=== PATIENT | female | born 1970 | race Caucasian/White ===

== ENCOUNTER 2017-08-01 09:00 | Emergency (ER) | payer SELFPAY ==
[2017-08-01 09:02] VITALS: BP 109/77; PULSE 106; RESP 28; TEMP 37.4; O2SAT 98; BMI 47.0
--- NOTE | 2017-08-01 09:15 | XR_ITS ---
XR chest portable HISTORY: Shortness of air ITS.REASON: soa/anxiety ORDERING PHYSICIAN: Isma Daugherty MD PATIENT AGE: 47 years COMPARISON: None available FINDINGS: The cardiomediastinal silhouette and pulmonary vascularity are within normal limits. The lungs are clear without infiltrates, suspicious nodules, or pleural effusions. No acute bony abnormalities. IMPRESSION: Negative chest, no acute finding
--- NOTE | 2017-08-01 09:16 | [facility].EDANX ---
ED Disposition Clinical Impression: Panic attack, Acute anxiety, Hypertension, Hx of prior ablation treatment, Obesity, Hyperventilation syndrome Disposition: Home, Self-Care Condition on Discharge: Fair Instructions: Anxiety and Panic Attacks (Alternative Therapy) Additional Instructions: 1- please obtain your ativan rx that is waiting for you from [facility]. use the visraril as needed. 2- you will need counseling with comp care. 3- use a paper bag if it helps. 4- return if needed. - Critical Care Critical Care Time: No Attestation: On , the high probability of a clinically significant, sudden or life threatening deterioration of the following system(s) required my full and direct attention, intervention and personal management. The time I documented below is in addition to time spent performing reported procedures but includes the following listed in this critical care notation. Medical Decision Making - Robert Inquiry Pt receiving controlled substance: No Robert was queried for this patient: No Vital Signs: 08/01/17 09:02 Temperature 99.4 F Temperature Source Oral Pulse Rate [Left Radial] 106 H Respiratory Rate 28 H Blood Pressure [Right Arm] 109/77 Blood Pressure Mean [Right Arm] 87 Blood Pressure Source [Right Arm] Automatic Cuff Blood Pressure Position [Right Arm] Sitting 02 Sat by Pulse Oximetry 98 Oxygen Delivery Method Room Air - Lab Data Lab Results 08/01/17 09:14: Specimen Source Right brachial, O2 % room air, ABG pH 7.46 H, ABG pCO2 33.7 L, ABG pO2 107.5 H, ABG HCO3 23.5, ABG Total CO2 24.6, ABG O2 Saturation 98, ABG Base Excess -0.3, Luis Test Non applicable 08/01/17 09:20: WBC 6.1, RBC 5.12, Hgb 13.8, Hct 43.2, MCV 84.3, MCH 27.0, MCHC 32.0, RDW 15.9, Plt Count 413, MPV 7.1 L, Neut % (Auto) 49.5, Lymph % (Auto) 38.4, [place] % (Auto) 6.2, Eos % (Auto) 5.2, Baso % (Auto) 0.6, Neut # (Auto) 3.0, Lymph # (Auto) 2.4, [place] # (Auto) 0.4, Eos # (Auto) 0.3, Baso # (Auto) 0.0 08/01/17 09:20: Sodium 138, Potassium 4.1, Chloride 101, Carbon Dioxide 26, Anion Gap 15.1 H, BUN 12, Creatinine 1.03 H, Estimated Creat Clear 66, Estimated GFR 57 L, Est GFR ( Amer) 69, Glucose 112 H, Calcium 8.6, Total Bilirubin 0.2, AST 18, ALT 24, Alkaline Phosphatase 76, Troponin I < 0.02, Total Protein 7.5, Albumin 3.5, Globulin 4.0 H, Albumin/Globulin Ratio 0.9 L 08/01/17 09:20: B-Natriuretic Peptide 25 Result diagrams: 08/01/17 09:20 08/01/17 09:20 Orders (Tests/Meds): ED MEDICATIONS Discontinued Medications Generic Name Dose Route Start Last Admin Trade Name Freq PRN Reason Stop Dose Admin Lorazepam 1 mg 08/01/17 09:14 08/01/17 09:17 Ativan 2mg/Ml Vial IV 08/01/17 09:15 1 mg ONCE ONE Administration ORDERS Category Date Time Status UDS [Drug Screen,Urine] Stat Lab 08/01/17 10:25 Received - Radiology Data #1 Image(s): Chest Preliminary Findings: Normal/NAD No acute findings and a portable chest x-ray. - ECG Data Tracing #1 Normal sinus rhythm 68/min baseline artifact no acute finding, ECG initial impression date: 08/01/17 ECG initial impression time: 09:39 Medical Decision Narrative: The patient underwent IV axis and received a dose of Ativan 1 mg IV with immediate resolution of her symptoms of anxiety dyspnea and palpitations. She quit crying and started being apologetic about her behavior. She verbalized concern about her father returning home. The patient received a second dose of Ativan during her ED stay and I had a full discussion with her about Ativan dependence. I strongly advised her for comprehensive counseling, outpatient psych evaluation for medication adjust, she verbalized understanding. Her boyfriend was in the bedside. Anxiety HPI - General Chief Complaint: Anxiety Stated Complaint: anxiety attack Time Seen by Provider: 08/01/17 09:35 Mode of Arrival: Wheelchair Limitations: No Limitations Description of Symptoms (
--- NOTE | 2017-08-01 09:21 | ED_ITS ---
ED Disposition Clinical Impression: Panic attack, Acute anxiety, Hypertension, Hx of prior ablation treatment, Obesity, Hyperventilation syndrome Disposition: Home, Self-Care Condition on Discharge: Fair Instructions: Anxiety and Panic Attacks (Alternative Therapy) Additional Instructions: 1- please obtain your ativan rx that is waiting for you from [facility]. use the visraril as needed. 2- you will need counseling with comp care. 3- use a paper bag if it helps. 4- return if needed. - Critical Care Critical Care Time: No Attestation: On , the high probability of a clinically significant, sudden or life threatening deterioration of the following system(s) required my full and direct attention, intervention and personal management. The time I documented below is in addition to time spent performing reported procedures but includes the following listed in this critical care notation. Medical Decision Making - Robert Inquiry Pt receiving controlled substance: No Robert was queried for this patient: No Vital Signs: 08/01/17 09:02 Temperature 99.4 F Temperature Source Oral Pulse Rate [Left Radial] 106 H Respiratory Rate 28 H Blood Pressure [Right Arm] 109/77 Blood Pressure Mean [Right Arm] 87 Blood Pressure Source [Right Arm] Automatic Cuff Blood Pressure Position [Right Arm] Sitting 02 Sat by Pulse Oximetry 98 Oxygen Delivery Method Room Air - Lab Data Lab Results 08/01/17 09:14: Specimen Source Right brachial, O2 % room air, ABG pH 7.46 H, ABG pCO2 33.7 L, ABG pO2 107.5 H, ABG HCO3 23.5, ABG Total CO2 24.6, ABG O2 Saturation 98, ABG Base Excess -0.3, Luis Test Non applicable 08/01/17 09:20: WBC 6.1, RBC 5.12, Hgb 13.8, Hct 43.2, MCV 84.3, MCH 27.0, MCHC 32.0, RDW 15.9, Plt Count 413, MPV 7.1 L, Neut % (Auto) 49.5, Lymph % (Auto) 38.4, [place] % (Auto) 6.2, Eos % (Auto) 5.2, Baso % (Auto) 0.6, Neut # (Auto) 3.0 , Lymph # (Auto) 2.4, [place] # (Auto) 0.4, Eos # (Auto) 0.3, Baso # (Auto) 0.0 08/01/17 09:20: Sodium 138, Potassium 4.1, Chloride 101, Carbon Dioxide 26, Anion Gap 15.1 H, BUN 12, Creatinine 1.03 H, Estimated Creat Clear 66, Estimated GFR 57 L, Est GFR ( Amer) 69, Glucose 112 H, Calcium 8.6, Total Bilirubin 0.2, AST 18, ALT 24, Alkaline Phosphatase 76, Troponin I < 0.02 , Total Protein 7.5, Albumin 3.5, Globulin 4.0 H, Albumin/Globulin Ratio 0.9 L 08/01/17 09:20: B-Natriuretic Peptide 25 Result diagrams: 08/01/17 09:20 08/01/17 09:20 Orders (Tests/Meds): ED MEDICATIONS Discontinued Medications Generic Name Dose Route Start Last Admin Trade Name Freq PRN Reason Stop Dose Admin Lorazepam 1 mg 08/01/17 09:14 08/01/17 09:17 Ativan 2mg/Ml Vial IV 08/01/17 09:15 1 mg ONCE ONE Administration ORDERS Category Date Time Status UDS [Drug Screen,Urine] Stat Lab 08/01/17 10:25 Received - Radiology Data #1 Image(s): Chest Preliminary Findings: Normal/NAD No acute findings and a portable chest x-ray. - ECG Data Tracing #1 Normal sinus rhythm 68/min baseline artifact no acute finding, ECG initial impression date: 08/01/17 ECG initial impression time: 09:39 Medical Decision Narrative: The patient underwent IV axis and received a dose of Ativan 1 mg IV with immediate resolution of her symptoms of anxiety dyspnea and palpitations. She quit
[2017-08-01 09:38] LABS: Basophils % 0.6 % (0.1-2.0); Eosinophils # 0.3 K/mm3 (0.0-0.4); Eosinophils % 5.2 % (0.1-12.0); Hematocrit 43.2 % (37.0-47.0); Hemoglobin 13.8 g/dL (12.2-16.2); Lymphocytes # 2.4 K/mm3 (0.7-4.5); Lymphocytes % 38.4 K/mm3 (10-50); Mean Corpuscular Volume 84.3 fl (81-99); Mean Platelet Volume 7.1 fl (7.4-10.4); Monocytes # 0.4 K/mm3 (0.1-1.0); Monocytes % 6.2 % (1.7-9.3); Neutrophils % 49.5 % (37.0-80.0); Platelet Count 413 K/mm3 (142-424); Red Blood Count 5.12 M/mm3 (4.20-5.40); Red Cell Distribution Width 15.9 % (11.5-17.5); White Blood Count 6.1 K/mm3 (4.8-10.8)
[2017-08-01 09:50] LABS: Alanine Aminotransferase 24 U/L (12-78); Albumin Level 3.5 gm/dL (3.4-5.0); Albumin/Globulin Ratio 0.9 (1.1-1.8); Alkaline Phosphatase 76 U/L (46-116); Anion Gap 15.1 mEq/L (5-15); Aspartate Amino Transferase 18 U/L (15-37); Bilirubin,Total 0.2 mg/dL (0.2-1.0); Blood Urea Nitrogen 12 mg/dL (7-18); Calcium 8.6 mg/dL (8.5-10.1); Carbon Dioxide 26 mmol/L (21.0-32.0); Chloride 101 mmol/L (98-107); Creatinine Clearance Estimated 66 mL/min (0-300); Creatinine,Serum 1.03 mg/dL (0.55-1.02); Estimated Glomerular Filt Rate 57 ml/min (>60); GFR (African American) 69 ML/MIN (>60); Glucose 112 mg/dL (74-106); Potassium 4.1 mmoL/L (3.5-5.1); Sodium 138 mmol/L (136-145); Total Protein,Serum 7.5 gm/dL (6.4-8.2); Troponin I < 0.02 ng/ml (0.00-0.06)
[2017-08-01 09:59] LABS: ABG Base Excess -0.3 mmol/L (-2.4-2.3); ABG HCO3 23.5 mmhg (22.0-26.0); ABG Oxygen Saturation 98 % (90-100); ABG PCO2 33.7 mmhg (35.0-45.0); ABG PH 7.46 mmol/L (7.35-7.45); ABG PO2 107.5 mmhg (80-100); ABG TCO2 24.6 mmhg (23-27)
[2017-08-01 10:02] LABS: Allen's Test Non Applicable; Oxygen room air %
[2017-08-01 10:03] LABS: Source Right Brachial
[2017-08-01 10:42] LABS: Amphetamine/Metha Screen,Urine Negative ng/mL (<1000); Barbiturates Screen,Urine Negative ng/mL (<200); Benzodiazepines Screen,Urine Negative ng/mL (200); Cannabinoid Screen,Urine Negative ng/mL (<50); Cocaine Screen,Urine Negative ng/g (<300); Methadone Screen,Urine Negative ng/mL (<300); Opiate Screen,Urine Negative ng/mL (<300); Phencyclidine Screen,Urine Negative ng/mL (<25)
[2017-08-01 10:48] VITALS: BP 131/90; PULSE 74; RESP 20; TEMP 36.8
== END 2017-08-01 10:50 | disposition home or self-care (01) ==
PROVIDERS: Emergency Medicine; Emergency Provider Emergency Medicine
DX: F41.0 Panic disorder [episodic paroxysmal anxiety] (principal); E66.9 Obesity, unspecified; Z68.42 Body mass index [BMI] 45.0-49.9, adult; F17.210 Nicotine dependence, cigarettes, uncomplicated; Z88.2 Allergy status to sulfonamides; Z88.6 Allergy status to analgesic agent
CPT/HCPCS: 71045; 80053; 80305; 82803; 83880; 84484; 85025; 93005; 96374; 99283